=== PATIENT | male | born 1985 | race Caucasian/White ===

== ENCOUNTER 2020-10-23 13:59 | Emergency (ER) | payer OTHER ==
[2020-10-23 14:34] VITALS: BP 110/74; PULSE 80; RESP 18; TEMP 98.1
--- NOTE | 2020-10-23 15:25 | XR ---
EXAMINATION TYPE: XR tibia fibula 2 views RT, XR ankle complete 3 views RT DATE OF EXAM: 10/23/2020 COMPARISON: NONE HISTORY: 35-year-old male with pain FINDINGS: Tibia/fibula: Subtle meniscal chondrocalcinosis. Mild degenerative spurring in both the medial and lateral compartm ents of the knee. No acute fracture of the more proximal to mid tibia or fibula. Ankle: Ankle mortise is congruent with preservation of the distal tibiofibular overlap. Talar dome is intact . Smooth delineation to the tendon. Subtalar joint align. IMPRESSION: 1. Tibia/fibula: Mild degenerative spurring at the knee. Meniscal chondrocalcinosis may be idiopathic or could be secondary to CPPD arthropathy. 2. Ankle: No acute osseous abnormality seen.
--- NOTE | 2020-10-23 16:26 | US ---
EXAMINATION TYPE: US venous doppler duplex LE RT DATE OF EXAM: 10/23/2020 4:18 PM COMPARISON: NONE CLINICAL HISTORY: 35-year-old male calf pain. SIDE PERFORMED: Right TECHNIQUE: The lower extremity deep venous system is examined utilizing real time linear array sonog ginny with graded compression, doppler sonography and color-flow sonography. FINDINGS: VESSELS IMAGED: Common Femoral Vein Deep Femoral Vein Greater Saphenous Vein * Femoral Vein Popliteal Vein Small Saphenous Vein * Proximal Calf Veins (* superficial vessels) Right Leg: Negative for DVT IMPRESSION: No evidence for DVT within the right lower extremity imaged from the groin to the upper calf.
--- NOTE | 2020-10-23 17:01 | ED ---
Lower Extremity Injury HPI - General Source: patient Mode of arrival: ambulatory Limitations: no limitations <Maria Ines Mejia - Last Filed: 10/23/20 17:09> <Marilyn Brown - Last Filed: 10/27/20 02:34> - General Chief Complaint: Extremity Injury, Lower Stated Complaint: R Leg Pain Time Seen by Provider: 10/23/20 16:00 - History of Present Illness Initial Comments: Patient is a 35-year-old male presenting to the emergency Department with complaints of pain in his right lower leg. Patient states he's been having this for about a week. He did go to [facility] 2 days ago and had an ultrasound to rule out DVT, this was negative. Patient states the pain has persisted and seems to be worse. He describes the pain as the right lower anterior leg as well as a posterior aspect. He states he recently increased his spironolactone medication from 50 mg 200 mg. They did tell him this could cause cramping. He also admitted to increasing his physical activity and is doing many plyometric and fast intensity workout programs. he denies history of blood clots, he has no chest pain or short of breath, no cough. He denies any previous injuries of his right lower leg. He has no further complaints. (Maria Ines Mejia) - Related Data Home Medications Medication Instructions Recorded Confirmed Ketoconazole 2% Shampoo [Nizoral] 1 applic TOPICAL Q3D 10/23/20 10/23/20 Multivitamins, Thera [Multivitamin 1 tab PO DAILY 10/23/20 10/23/20 (formulary)] Spironolactone 50 mg PO BID 10/23/20 10/23/20 estradioL [estradioL (Once Weekly) 1 patch TRANSDERM SOMMERS 10/23/20 10/23/20 0.1mg Patch] Allergies Allergy/AdvReac Type Severity Reaction Status Date / Time avocado Allergy Anaphylaxis Verified 10/23/20 17:09 banana Allergy Anaphylaxis Verified 10/23/20 17:09 tomato AdvReac Rash/Hives Verified 10/23/20 17:09 Review of Systems ROS Other: All systems not noted in ROS Statement are negative. <Maria Ines Mejia - Last Filed: 10/23/20 17:09> ROS Other: All systems not noted in ROS Statement are negative. <Marilyn Brown - Last Filed: 10/27/20 02:34> ROS Statement: Those systems with pertinent positive or pertinent negative responses have been documented in the HPI. Past Medical History Additional Past Medical History / Comment(s): transgender- taking meds to transition. History of Any Multi-Drug Resistant Organisms: None Reported Additional Past Surgical History / Comment(s): meniscus repair on right, lipoma removed from chest, vasectomy, Past Psychological History: PTSD Smoking Status: Current every day smoker Past Alcohol Use History: None Reported Past Drug Use History: None Reported <Maria Ines Mejia - Last Filed: 10/23/20 17:09> General Exam Limitations: no limitations <Maria Ines Mejia - Last Filed: 10/23/20 17:09> - General Exam Comments Initial Comments: GENERAL: Patient is well-developed and well-nourished. Patient is nontoxic and in no acute distress. HEAD: Atraumatic, normocephalic. EYES: Pupils equal round and reactive to light, extraocular movements intact, sclera anicteric, conjunctiva are normal. Eyelids were unremarkable. ENT: TMs normal, nares patent, oropharynx clear without exudates. Moist mucous membranes. NECK: Normal range of motion, supple without lymphadenopathy or JVD. LUNGS: Unlabored respirations. Breath sounds clear to auscultation bilaterally and equal. No wheezes rales or rhonchi. HEART: Regular rate and rhythm without murmurs, rubs or gallops. ABDOMEN: Soft, nontender, normoactive bowel sounds. No guarding, no rebound. No masses appreciated. : Deferred MUSCULOSKELETAL: Normal extremities with adequate strength and normal range of motion, no pitting or edema. No clubbing or cyanosis. mild pain with palpation of the anterior right lower leg, some mild calf tenderness. There is no erythema, no signs of infection. NEUROLOGICAL: Patient is alert and oriented x 3. Motor and sensory are also intact. Cranial nerves II through XII grossly intact. Symmetrical smile. Normal speech, normal gait. PSYCH: Normal mood, normal affect. SKIN: Warm, Dry, normal turgor, no rashes or lesions noted. (Maria Ines Mejia) Course Vital Signs 10/23/20 14:27 Temperature 98.1 F Pulse Rate 80 Respiratory 18 Rate Blood Pressure 110/74 O2 Sat by Pulse 99 Oximetry Medical Decision Making <Maria Ines Mejia - Last Filed: 10/23/20 17:09> <Marilyn Brown - Last Filed: 10/27/20 02:34> - Medical Decision Making patient is a 35-year-old male here for right lower leg pain for the past week. He did have an ultrasound at [facility] 2 nights ago which was negative for DVT. No previous injuries or surgeries. X-rays today showed mild degenerative spurring at the knee, no acute bony abnormalities. Ultrasound today is also negative for DVT. I discussed with patient that his symptoms could be related to an increase in his medication as well as an increase in his physical activity. I recommended stretching of his lower legs, decreasing jumping activities for 1-2 weeks. Also recommended heat to the area. Patient is stable for discharge. Patient is in agreement with this plan of care. Return parameters were discussed with the patient and they verbalized understanding. Case discussed with Dr. Brown. (Maria Ines Mejia) I was available for consultation in the emergency department. The history and physical exam were done by the midlevel provider. I was consulted for this patients care. I reviewed the case with the midlevel provider and based on their presentation of the patient, I agree with the assessment, medical decision making and plan of care as documented. Chart was dictated using Smart Panel dictation software. Attempts were made to correct any dictation errors however some typographical errors may persist. Patient was seen during a national state of emergency due to the Covid-19 pandemic. (Marilyn Brown) Disposition Is patient prescribed a controlled substance at d/c from ED?: No Time of Disposition: 17:01 <Maria Ines Mejia - Last Filed: 10/23/20 17:09> <Marilyn Brown - Last Filed: 10/27/20 02:34> Clinical Impression: Pain in right lower leg Disposition: HOME SELF-CARE Condition: Stable Instructions (If sedation given, give patient instructions): Tierney Splints (ED) Additional Instructions: Please return to the Emergency Department if symptoms worsen or any other concerns. Recommend heat to the area, stretching of bilateral lower legs. Limiting jumping, running activities for 1-2 weeks. Also recommend ibuprofen for inflammation. follow-up with your primary care physician. Referrals: [facility],Clinic [Primary Care Provider] - 1-2 days
== END 2020-10-23 17:27 | disposition home or self-care (01) ==
LOC: EC 13:59
DX: M79.661 Pain in right lower leg (principal); F17.200 Nicotine dependence, unspecified, uncomplicated
CPT/HCPCS: 99284